=== PATIENT | male | born 1950 | race Caucasian/White ===

== ENCOUNTER 2017-10-10 16:29 | Emergency (ER) | payer MEDICARE ==
--- NOTE | 2017-10-12 08:34 | EDM.PDOC ---
ED HPI GENERAL MEDICAL PROBLEM - General Chief Complaint: General Stated Complaint: fish hook Time Seen by Provider: 10/10/17 16:55 Source of Information: Reports: Patient History Limitations: Reports: No Limitations - History of Present Illness INITIAL COMMENTS - FREE TEXT/NARRATIVE: This is a 67yo M here for a fish hook in the left thumb. Denies any other issues and states his Tetanus is up to date - he had it 3 yrs ago. Onset: Sudden Location: Reports: Upper Extremity, Left Severity: Mild Review of Systems - Review of Systems Review Of Systems: ROS reveals no pertinent complaints other than HPI. ED EXAM, GENERAL - Physical Exam Exam: See Below Exam Limited By: No Limitations General Appearance: Alert, WD/WN, No Apparent Distress Nose: Normal Inspection Throat/Mouth: Normal Inspection Respiratory/Chest: No Respiratory Distress Cardiovascular: Normal Peripheral Pulses Extremities: Other (left thumb fish hook) Skin Exam: Wound/Incision ED TRAUMA EXTREMITY PROCEDURES - Foreign Body Removal Indication:: Fish hook, patient cut off hook near skin surface. Consent Obtained: Patient Anesthesia Type: Local Complications:: No Comments:: Left Thumb numbed and tracked with a 22 ga needle to cover andrea and remove hook. Departure - Departure Time of Disposition: 17:30 Disposition: Home, Self-Care 01 Condition: Good Clinical Impression: Fish hook injury of finger of left hand Qualifiers: Encounter type: initial encounter Qualified Code(s): S69.92XA - Unspecified injury of left wrist, hand and finger(s), initial encounter - Discharge Information Instructions: Puncture Wound Referrals: PCP,None [Primary Care Provider] - Forms: ED Department Discharge Additional Instructions: Watch for signs of infection such redness, swelling, fever, chills, drainage and f/u in ER or clinic if any concerns.
== END 2017-10-10 17:15 | disposition home or self-care (01) ==
LOC: LB.ED 16:29
DX: S60.352A Superficial foreign body of left thumb, initial encounter (principal); W45.8XXA Other foreign body or object entering through skin, initial encounter
CPT/HCPCS: 10120; 99283-25